=== PATIENT | female | born 1995 | race Caucasian/White ===

== ENCOUNTER → 2016-08-14 | Outpatient (CLI) | payer OTHER ==
[~2016-08-14] MED LIST: BIOT1000 PO; ENPRTAB PO; IBUP800T23 PO; MAGN500T4 PO; MULTCHW27 PO; NAPR220T95 PO
[2016-08-14 11:34] LABS: MEAN CELL VOLUME 87.5 FL (80.0-100.0); MEAN CORPUSCULAR HEMOGLOBIN 28.8 PG (27.0-34.0); PLATELET COUNT 190 TH/MM3 (150-450); RED CELL DISTRIBUTION WIDTH 13.4 % (11.6-17.2); REVIEW FLAG FINAL; WHITE BLOOD COUNT 6.3 TH/MM3 (4.0-11.0)
== END ==
LOC: CPRE 09:39
PROVIDERS: ATTEND Specialist
DX: Z01.812 Encounter for preprocedural laboratory examination (principal); J32.9 Chronic sinusitis, unspecified
CPT/HCPCS: 36415; 85027

== ENCOUNTER → 2016-08-16 | Day surgery (SDC) | payer OTHER ==
--- NOTE | 2016-08-15 17:35 | MH ---
cc: DAVID ALBERT DATE OF ADMISSION: 08/16/2016 ADMITTING DIAGNOSIS: HISTORY OF PRESENT ILLNESS: The patient is 21 years old, nasal obstruction, chronic sinusitis for nasal sinus surgery. PAST MEDICAL HISTORY Unremarkable PAST SURGICAL HISTORY Unremarkable REVIEW OF SYSTEMS, FAMILY HISTORY AND SOCIAL HISTORY Unremarkable PHYSICAL EXAMINATION Well-appearing patient no acute distress noted. HEENT: Exam reveals septal deviation, turbinate hypertrophy and significant mucopurulent secretions. Lungs: Clear. Heart: Regular rate and rhythm. Abdomen: Soft and nontender. Extremities: Without cyanosis, the edema. Neurologic: Alert and oriented, nonfocal neurologic exam. IMPRESSION Patient with chronic sinusitis and nasal obstruction for nasal sinus surgery. Instructed as to the method of surgery and possible complication include anesthetic complications, cardiac difficulty, pulmonary difficulty, stroke, coma or even . Surgical complications of bleeding, infection, risk of septal perforation, decreased sense of smell, dry nose, bleeding with transfusion requirement and packing requirement. The patient appeared to agree accept and understand the above-mentioned risks and benefits. In addition no guarantees or warranties regarding outcome were given. We will therefore proceed with surgery. David Albert MD [facility]/[place] /5:21 PM /5:29 PM
[~2016-08-16] MED LIST changes: +ACETAMINOPHEN 1000 MG/100 ML VIAL IV ONE; +ACETAMINOPHEN/HYDROcodone 325 MG/7.5 MG TAB ONE; +ACETAMINOPHEN/HYDROcodone 325 MG/7.5 MG TAB PO PRN; +APREPITANT 40 MG CAP ONE; +CHLORHEXIDINE GLUCONATE 2 % 1 PACK (2 CLOTHS) TOPICAL PRN; +EPINEPHrine HCL (1:1000) 1 MG/ML VIAL ONE; +EPINEPHrine HCL (1:1000) 30 MG/30 ML VIAL ONE; +INSULIN HUMAN REGULAR 1,000 UNITS/10 ML VIAL SQ PRN; +LACTATED RINGER'S 1000 ML IV PRN; +LIDOCAINE 1%/EPINEPHrine 1:100,000 SOLN 20 ML VIAL ONE; +METOPROLOL TARTRATE 25 MG TAB PO PRN; +MIDAZOLAM HCL 2 MG/2 ML VIAL ONE; +MORPHINE SULFATE 4 MG/ML INJ IV PUSH PRN; +ONDANSETRON HCL 4 MG/2 ML VIAL IV PUSH ONE; +ONDANSETRON HCL 4 MG/2 ML VIAL IV PUSH PRN; +POVIDONE IODINE 5% (ANTISEPSIS KIT) 4 APPLICATIONS EACH NARE PRN; +PROPOFOL 200 MG/20 ML AMP IV ONE; +SODIUM CHLORID 0.9% 500 ML IV PRN; +fentaNYL CITRATE 250 MCG/5 ML AMP ONE
[2016-08-16 06:30] VITALS: BP 114/71; PULSE 75; RESP 20; TEMP 98.1; O2SAT 98
[2016-08-16 10:34] VITALS: BP 123/76; PULSE 71; RESP 16; TEMP 97.9; O2SAT 98
--- NOTE | 2016-08-18 12:47 | MP ---
cc: DAVID ALBERT M.D. DATE OF SURGERY: 08/16/2016 PREOPERATIVE DIAGNOSIS Nasal obstruction, chronic sinusitis. PROCEDURE Open septal reconstruction, left and right inferior turbinectomy, submucous resection and left and right endoscopic maxillary antrostomy. ANESTHESIA General anesthesia. ESTIMATED BLOOD LOSS Minimal. COMPLICATIONS None. SURGEON Dr. Albert. OPERATING FOLLOWS Prepped and draped in the usual fashion. 1% Xylocaine and 1:100,000 epinephrine injected into nasal septum, inferior turbinates, middle meatus bilaterally. 1:1000 adrenaline soaked pledgets were placed and then removed. Mucoperichondrial incision made on the left side of the nose septum. Mucoperichondrial flap elevated. Significant amount of bone and cartilage removed from this incision after isolating the bone and cartilage to improve the nasal airway and reduce the nasal fracture. The mucoperichondrial flap was reapproximated. Once this was achieved, the natural antrostomy was identified and enlarged with a curved suction under endoscopic visualization on both the left and right side and the Coblator probe with power level 4 was used to reduce the size of the inferior turbinates bilaterally with multiple insertions in the left and right inferior turbinate significantly reducing the turbinate improving the nasal airway. No active bleeding was noted. The patient tolerated the procedure well MD DAQUAN Guzman/RADHIKA /9:29 AM /12:23 PM
== END | disposition home or self-care (01) ==
LOC: HSDC 05:52 → EDUNIT# 08:00
PROVIDERS: ATTEND Specialist
DX: J34.89 Other specified disorders of nose and nasal sinuses (principal); J32.9 Chronic sinusitis, unspecified
CPT/HCPCS: 00160; 30140; 30520; 31256; J0131; J0171; J2250; J2405; J3010; J8501